=== PATIENT | female | born 1975 | race Caucasian/White ===

== ENCOUNTER 2018-03-30 16:07 | Emergency (ER) | payer SELFPAY ==
[~2018-03-30] VITALS: Ht 160 cm; Wt 65.0 kg
[2018-03-30 16:30] VITALS: BP 110/60; PULSE 112; RESP 16; TEMP 98.7; O2SAT 98
[2018-03-30] MEDS ORDERED: SUBO8MIS SL (17:17)
== END 2018-03-30 17:47 | disposition left against medical advice (07) ==
LOC: NEPC 16:07
DX: Z03.89 Encounter for observation for other suspected diseases and conditions ruled out (principal)
CPT/HCPCS: 99281

== ENCOUNTER 2018-04-18 14:04 | Emergency (ER) | payer SELFPAY ==
[~2018-04-18] VITALS: Ht 160 cm; Wt 72.0 kg
[~2018-04-18 14:04] MED LIST: SUBO8MIS SL
[2018-04-18 14:07] VITALS: BP 149/73; PULSE 99; RESP 16; TEMP 99.5; O2SAT 99
--- NOTE | 2018-04-18 14:53 | PD ---
HPI Chief Complaint: Edema Time Seen by Provider: 14:31 Travel History International Travel<30 days: No Contact w/Intl Traveler<30days: No Traveled to known affect area: No History of Present Illness HPI The patient was seen and examined in the presence of the nurse. This patient complains of swelling of her left leg. Duration 3 days. Severity is moderate. 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 She is no longer on blood thinners. No injury. She thought she might of had a spider bite to the thigh prior to the swelling. She denies fever. No alleviating factors. No exacerbating factors. PFSH Past Medical History Diminished Hearing: No Tetanus Vaccination: > 5 Years Influenza Vaccination: No ?: Not LMP: 04/10/2018 : 2 Para: 0 Miscarriage: 1 : 0 Past Surgical History Section: Yes (X 1) Gynecologic Surgery: Yes Social History Alcohol Use: Yes (OCASSIONALLY) Tobacco Use: Yes (1 PACK PER DAY) Substance Use: Yes ((HEROIN IV ABUSE)pt denies on 04/18/18) Allergies-Medications (Allergen,Severity, Reaction): Coded Allergies: No Known Allergies (Verified Allergy, Intermediate, 04/18/18) Reported Meds & Prescriptions Reported Meds & Active Scripts Active Tylenol-Codeine #3 (Acetaminophen-Codeine) 300-30 mg Tab 1 Tab PO Q6H PRN Xarelto (Rivaroxaban) 15 Mg Tab 15 Mg PO Q12HR 21 Days Review of Systems General / Constitutional: No: Fever Eyes: No: Visual changes HENT: No: Headaches Cardiovascular: Positive: Edema, No: Chest Pain or Discomfort Respiratory: No: Shortness of Breath Gastrointestinal: No: Abdominal Pain Genitourinary: No: Dysuria Musculoskeletal: Positive: Myalgias, Edema, Pain Skin: No Rash Neurologic: No: Weakness Psychiatric: No: Depression Endocrine: No: Polydipsia Hematologic/Lymphatic: No: Easy Bruising Physical Exam Narrative GENERAL: Well-nourished, well-developed patient in no apparent distress. SKIN: Focused skin assessment reveals no rash and nodules. Skin is Warm and dry. HEAD: Atraumatic. Normocephalic. EYES: Pupils equal and round. No scleral icterus. No injection or drainage. ENT: No nasal bleeding or discharge. Mucous membranes pink and moist. NECK: Trachea midline. No JVD. CARDIOVASCULAR: Regular rate and rhythm. No murmur appreciated. RESPIRATORY: No accessory muscle use. Clear to auscultation. Breath sounds equal bilaterally. GASTROINTESTINAL: Abdomen soft, non-tender, nondistended. Hepatic and splenic margins not palpable. MUSCULOSKELETAL: No obvious deformities. No clubbing. No cyanosis. There is pitting edema of the left leg below the knee. There is an indurated area in the left groin. That area has no fluctuance or erythema or warmth or drainage. NEUROLOGICAL: Awake and alert. No obvious cranial nerve deficits. Motor grossly within normal limits. Normal speech. PSYCHIATRIC: Appropriate mood and affect; insight and judgment normal. Data Data Last Documented VS Vital Signs Date Time Temp Pulse Resp B/P (MAP) Pulse Ox O2 Delivery O2 Flow Rate FiO2 04/18/18 14:45 16 04/18/18 14:07 99.5 99 149/73 (98) 99 Orders Orders Us Leg Venous Doppler (04/18/18 ) Iv Access Insert/Monitor (04/18/18 14:45) Complete Blood Count With Diff (04/18/18 14:45) Comprehensive Metabolic Panel (04/18/18 14:45) Beta Hcg (Quant/Titer) (04/18/18 14:45) Acetamin-Hydrocod 325-5 Mg ([place] 5-325 (04/18/18 15:00) Labs Laboratory Tests Test 04/18/18 14:57 White Blood Count 11.1 TH/MM3 Red Blood Count 4.65 MIL/MM3 Hemoglobin 11.8 GM/DL Hematocrit 35.6 % Mean Corpuscular Volume 76.7 FL Mean Corpuscular Hemoglobin 25.4 PG Mean Corpuscular Hemoglobin Concent 33.1 % Red Cell Distribution Width 15.6 % Platelet Count 440 TH/MM3 Mean Platelet Volume 7.1 FL Neutrophils (%) (Auto) 84.0 % Lymphocytes (%) (Auto) 11.8 % Monocytes (%) (Auto) 3.7 % Eosinophils (%) (Auto) 0.3 % Basophils (%) (Auto) 0.2 % Neutrophils # (Auto) 9.4 TH/MM3 Lymphocytes # (Auto) 1.3 TH/MM3 Monocytes # (Auto) 0.4 TH/MM3 Eosinophils # (Auto) 0.0 TH/MM3 Basophils # (Auto) 0.0 TH/MM3 CBC Comment DIFF FINAL Differential Comment Blood Urea Nitrogen 4 MG/DL Creatinine 0.66 MG/DL Random Glucose 199 MG/DL Total Protein 8.8 GM/DL Albumin 2.9 GM/DL Calcium Level 8.7 MG/DL Alkaline Phosphatase 128 U/L Aspartate Amino Transf (AST/SGOT) 13 U/L Alanine Aminotransferase (ALT/SGPT) 14 U/L Total Bilirubin 0.8 MG/DL Sodium Level 135 MEQ/L Potassium Level 3.8 MEQ/L Chloride Level 100 MEQ/L Carbon Dioxide Level 27.6 MEQ/L Anion Gap 7 MEQ/L Estimat Glomerular Filtration Rate 99 ML/MIN Human Chorionic Gonadotropin, Quant LESS THAN 1 MIU/ML MDM Medical Decision Making Medical Screen Exam Complete: Yes Emergency Medical Condition: Yes Medical Record Reviewed: Yes Differential Diagnosis DVT, cellulitis, superficial thrombophlebitis Narrative Course I have reviewed the patient's electronic medical record. IV placed and labs sent Ultrasound of the left leg shows DVT Lab studies are reviewed Beta hCG negative She has no anemia or thrombocytopenia Lengthy discussion with her. She does have history of DVT on the other leg in the past and has been on blood thinners before. Going to put her on Xarelto twice a day for 3 weeks. She knows that at that time she will be changed to once a day dosing at a different dose and should do her best to get follow-up by that time. She is given information on [facility]. call center manager has met with her. We have provided her with the program to get 30 days of Xarelto free. Discussed the risks and benefits and alternatives and she accepts the risk of being put on a blood thinner I wrote her a dozen pain pills as well Diagnosis Primary Impression: Left leg DVT Qualified Codes: I82.4Z2 - Acute embolism and thrombosis of unspecified deep veins of left distal lower extremity Additional Instructions: Follow-up at [facility] The patient was warned about potential sedation for the medications they will receive on prescription. Elevate left leg Med/Other Pt SpecificInfo: Prescription(s) given Scripts Acetaminophen-Codeine (Tylenol-Codeine #3) 300-30 mg Tab 1 TAB PO Q6H Y for PAIN, #12 TAB 0 Refills Prov: Yohannes Ridley MD 04/18/18 Rivaroxaban (Xarelto) 15 Mg Tab 15 MG PO Q12HR for Blood Clot Prevention for 21 Days, TAB 0 Refills Prov: Yohannes Ridley MD 04/18/18 Disposition: 01 DISCHARGE HOME Condition: Stable Yohannes Ridley MD Apr 18, 2018 14:53
[2018-04-18] MEDS ORDERED: ACETAMINOPHEN/HYDROcodone 325 MG/5 MG TAB PO ONE (15:00)
[2018-04-18 15:04] LABS: AUTOMATED NEUTROPHIL # 9.4 TH/MM3 (1.8-7.7); BASOPHIL % 0.2 % (0.0-2.0); EOSINOPHIL % 0.3 % (0.0-4.0); HEMATOCRIT 35.6 % (35.0-46.0); HEMOGLOBIN 11.8 GM/DL (11.6-15.3); LYMPH % 11.8 % (9.0-44.0); LYMPHOCYTE # 1.3 TH/MM3 (1.0-4.8); MEAN CELL VOLUME 76.7 FL (80.0-100.0); MEAN CORPUSCULAR HEMOGLOBIN 25.4 PG (27.0-34.0); MEAN CORPUSCULAR HGB CONC 33.1 % (32.0-36.0); MEAN PLATELET VOLUME 7.1 FL (7.0-11.0); MONO % 3.7 % (0.0-8.0); MONOCYTE # 0.4 TH/MM3 (0-0.9); PLATELET COUNT 440 TH/MM3 (150-450); RED BLOOD COUNT 4.65 MIL/MM3 (4.00-5.30); RED CELL DISTRIBUTION WIDTH 15.6 % (11.6-17.2); WHITE BLOOD COUNT 11.1 TH/MM3 (4.0-11.0)
[2018-04-18 15:12] LABS: CHLORIDE 100 MEQ/L (98-107); SODIUM (NA) 135 MEQ/L (136-145)
[2018-04-18 15:15] LABS: ALBUMIN 2.9 GM/DL (3.4-5.0); CALCIUM 8.7 MG/DL (8.5-10.1)
[2018-04-18 15:16] LABS: BICARBONATE 27.6 MEQ/L (21.0-32.0); BLOOD UREA NITROGEN 4 MG/DL (7-18); GLUCOSE,RANDOM 199 MG/DL (74-106)
[2018-04-18 15:19] LABS: ALT (GPT) 14 U/L (10-53); AST (GOT) 13 U/L (15-37); CREATININE 0.66 MG/DL (0.50-1.00); GLOMERULAR FILTRATION RATE 99 ML/MIN (>89)
[2018-04-18 15:20] LABS: TOTAL BILIRUBIN ADULT 0.8 MG/DL (0.2-1.0); TOTAL PROTEIN 8.8 GM/DL (6.4-8.2)
[2018-04-18 15:22] LABS: ALKALINE PHOSPHATASE 128 U/L (45-117)
--- NOTE | 2018-04-18 15:53 | RADRPT ---
EXAM DATE: 04/18/2018 3:38 PM EDT AGE/SEX: 42 years / Female INDICATIONS: Left leg swelling. CLINICAL DATA: This is the patient's initial encounter. Patient reports that signs and symptoms have been present for 2 days and indicates a pain score of 10/10. MEDICAL/SURGICAL HISTORY: . Substance abuse. section. COMPARISON: No prior exams available for comparison. TECHNIQUE: Venous ultrasound of both lower extremities was performed from the inguinal ligament to t he proximal calf. Real-time, color Doppler and spectral tracing, compression and augmentation techni ques were used. FINDINGS: There is occlusive and nonocclusive deep venous thrombosis in the left lower extremity extending from the iliac veins and the popliteal vein. Nonocclusive superficial thrombus also seen at the origin of the greater saphenous vein near mid calf. CONCLUSION: 1. Positive for deep venous thrombosis left lower extremity. Electronically signed by: Alejo Ivory MD 04/18/2018 3:51 PM EDT
[2018-04-18] MEDS ORDERED: TYLETAB34 PO (16:43)
[2018-04-18] MEDS ORDERED: XARE15TA PO (16:43)
[2018-04-18 16:47] VITALS: BP 140/88; PULSE 87; RESP 18; O2SAT 100
== END 2018-04-18 16:56 | disposition home or self-care (01) ==
LOC: PHED 14:04
DX: I82.4Z2 Acute embolism and thrombosis of unspecified deep veins of left distal lower extremity (principal); F17.200 Nicotine dependence, unspecified, uncomplicated; F11.11 Opioid abuse, in remission
CPT/HCPCS: 80053; 84702; 85025; 93971; 99283